=== PATIENT | male | born 1955 | race Caucasian/White ===

== ENCOUNTER → 2023-09-14 | Outpatient (CLI) | payer MEDICARE, OTHER ==
[2023-09-14 13:03] LABS: African American GFR (CKD) >90 (>60 ml/min/1.73 sqM); Blood Urea Nitrogen 19 mg/dL (9-20); Non-African American GFR(CKD) 87 (>60 ml/min/1.73 sqM)
--- NOTE | 2023-09-14 13:51 | CT ---
Exam: CT Chest with contrast. Date: 09/14/2023. Comparison: None available. History: Cough and difficulty breathing. Technique: CT examination of the chest was performed following the intravenous administration of . C oronal and sagittal reformats were performed. CT dose lowering techniques were used, to include: auto mated exposure control, adjustment for patient size, and/or use of iterative reconstruction. FINDINGS: Mediastinum and Lucina: There is no axillary, mediastinal or hilar lymphadenopathy. Pleural and Pericardial spaces: There are no pleural or pericardial effusions. Upper Abdomen: The visualized upper abdomen is unremarkable. Cardiovascular: There is dilation acing thoracic aorta 4.2 cm. No evidence of aortic dissection is se en. There are moderate to severe coronary artery calcifications. There is moderate global cardiomegal y. Pulmonary Artery: There are no central pulmonary arterial abnormalities. The examination was not per formed to evaluate for pulmonary embolism. Lung Parenchyma and Airways: Chronic compression deformity of the L2 vertebral body is partially incl uded. There are no acute osseous abnormalities. Bones: No fracture or aggressive osseous lesion. IMPRESSION: 1. No acute abnormality in the chest. 2. Cardiomegaly with moderate to severe coronary artery calcifications.
== END | disposition home or self-care (01) ==
LOC: RADCTMAIN 11:52
PROVIDERS: ATTEND Family Medicine
DX: I51.7 Cardiomegaly (principal); I25.10 Atherosclerotic heart disease of native coronary artery without angina pectoris; R06.02 Shortness of breath; R05.3 Chronic cough
CPT/HCPCS: 82565; 84520; 71260; 36415; Q9967

== ENCOUNTER → 2023-10-22 | Outpatient (CLI) | payer MEDICARE, OTHER ==
--- NOTE | 2023-10-22 12:36 | CA ---
Transthoracic Echo Report Name: Jorge Masterson Age: 67 Gender: M : 1955 Exam Date: 10/22/2023 09:17 Exam Location: [facility] Ht (in): 72 Wt (lb): 190 Ordering Physician: Linus Bishop MD Attending/Referring Phys: Edna SANCHEZ Red Cap Gloria Sharp [facility] Procedure CPT: Indications: I51.7 Cardiomegaly Cardiac Hx: Technical Quality: Technically difficult study Contrast 1: Total Dose (mL): Contrast 2: Total Dose (mL): MEASUREMENTS (Male / Female) Normal Values 2D ECHO LV Diastolic Diameter PLAX 5.5 cm 4.2 - 5.9 / 3.9 - 5.3 cm LV Systolic Diameter PLAX 4.6 cm IVS Diastolic Thickness 1.4 cm 0.6 - 1.0 / 0.6 - 0.9 cm LVPW Diastolic Thickness 1.2 cm 0.6 - 1.0 / 0.6 - 0.9 cm LV Relative Wall Thickness 0.5 LVOT Diameter 2.0 cm Aortic Root Diameter 3.8 cm LV Diastolic Volume MOD BP 84.0 cm??? 67 - 155 / 56 - 104 cm??? LV Systolic Volume MOD BP 61.1 cm??? 22 - 58 / 19 - 49 cm??? LV Ejection Fraction MOD BP 27.3 % >= 55 % LV Cardiac Index MOD BP 1450.3 cm???/min???m??? LV Diastolic Volume MOD 4C 93.9 cm??? LV Systolic Volume MOD 4C 71.4 cm??? LV Ejection Fraction MOD 4C 24.0 % LV Cardiac Index MOD 4C 1426.3 cm???/min???m??? LV Diastolic Length 4C 7.9 cm LV Systolic Length 4C 7.4 cm LV Diastolic Volume MOD 2C 64.2 cm??? LV Systolic Volume MOD 2C 46.4 cm??? LV Ejection Fraction MOD 2C 27.8 % LV Cardiac Index MOD 2C 1128.0 cm???/min???m??? LV Diastolic Length 2C 6.7 cm LV Systolic Length 2C 6.3 cm LA Volume 82.0 cm??? 18 - 58 / 22 - 52 cm??? LA Volume Index 39.0 cm???/m??? 16 - 28 cm???/m??? Ascending Aorta Diameter 4.2 cm M-MODE Aortic Root Diameter MM 3.1 cm LA Systolic Diameter MM 4.6 cm LA Ao Ratio MM 1.5 AV Cusp Separation MM 2.2 cm DOPPLER AV Peak Velocity 98.2 cm/s AV Peak Gradient 3.9 mmHg AV Mean Velocity 75.2 cm/s AV Mean Gradient 2.4 mmHg AV Velocity Time Integral 18.0 cm LVOT Peak Velocity 100.4 cm/s LVOT Peak Gradient 4.0 mmHg LVOT Velocity Time Integral 17.0 cm LVOT Stroke Volume 55.0 cm??? LVOT Stroke Volume Index 26.4 ml/m??? LVOT Cardiac Index 3480.2 cm???/min???m??? AV Area Cont Eq vti 3.0 cm??? AV Area Cont Eq pk 3.3 cm??? Mitral E Point Velocity 86.2 cm/s MV Deceleration Time 155.3 ms LV E' Septal Velocity 4.4 cm/s Mitral E to LV E' Septal Ratio 19.5 TR Peak Velocity 231.8 cm/s TR Peak Gradient 21.5 mmHg Right Atrial Pressure 15.0 mmHg Pulmonary Artery Systolic Pressu 36.5 mmHg Right Ventricular Systolic Press 36.5 mmHg FINDINGS Left Ventricle Moderately increased septal wall thickness. Mildly increased posterior wall thickness. Mildly increased left ventricular systolic volume. Severely decreased left ventricular ejection fraction. Left ventricular ejection fraction is estimated at 25-30%. Severely reduced global left ventricular systolic function. Right Ventricle Right ventricle at upper limits of normal. Mild pulmonary hypertension. Right Atrium Upper normal right atrial size. Left Atrium Moderately increased left atrial volume. Mildly increased left atrial area. Mitral Valve Mitral valve thickened. Mild mitral annular calcification. Mild mitral regurgitation. Aortic Valve Trileaflet aortic valve. No aortic valve stenosis or regurgitation. Tricuspid Valve Structurally normal tricuspid valve. Mild tricuspid regurgitation. Pulmonic Valve Pulmonic valve not well visualized. Pericardium No pericardial effusion. Aorta Mild aortic dilatation at the level of the sinuses of valsalva (root). Mildly dilated proximal ascending aorta (tube). CONCLUSIONS Technically difficult study. Left ventricular ejection fraction is estimated at 25-30%. Severely reduced global left ventricular systolic function. Mild mitral regurgitation. Mildly dilated proximal ascending aorta. 4.2 cm by CTA Previewed by: Dr Wei Sykes (Electronically Signed) Final Date: 22 October 2023 12:36
== END | disposition home or self-care (01) ==
LOC: RADNMMAIN 08:59
PROVIDERS: ATTEND Family Medicine
DX: I77.811 Abdominal aortic ectasia (principal); I34.0 Nonrheumatic mitral (valve) insufficiency; I51.7 Cardiomegaly; I48.91 Unspecified atrial fibrillation
CPT/HCPCS: 93306

== ENCOUNTER → 2023-11-15 | Day surgery (SDC) | payer MEDICARE, OTHER ==
[~2023-11-15] MED LIST: ALPRAZolam 0.25 MG TAB PO PRN; ALPRAZolam 0.5 MG TAB PO PRN; ASPIRIN 325 MG TAB PO STA; HEPARIN SODIUM 1,000 UN/ML (10ML VL) ONE; LIDOCAINE 1% INJ 10MG/ML (20 ML MDV) ONE; NITROGLYCERIN SL TABS 0.4 MG TAB SUBLINGUAL PRN; RX INFO: IV CONTRAST WAS GIVEN 1 EACH MISC MISCELLANE PRN; SODIUM CHLORIDE 0.9% 1,000 ML IV SCH; VERAPAMIL 2.5 MG/ML 2 ML AMP ONE; fentaNYL (PF) 50 MCG/ML 2 ML AMP ONE
[2023-11-15] MEDS: SODIUM CHLORIDE 0.9% 1,000 ML in EMPTY BAG 1 BAG IV SCH (06:20)
[2023-11-15 06:31] LABS: Basophils # (A) 0.1 k/uL (0-0.2); Basophils % (A) 1 %; Eosinophils # (A) 0.2 k/uL (0-0.7); Eosinophils % (A) 2 %; HCT 43.7 % (39.0-53.0); HGB 14.5 gm/dL (13.0-17.5); Lymphocytes # (A) 1.7 k/uL (1.0-4.8); Lymphocytes % (A) 20 %; MCH 29.6 pg (25.0-35.0); MCHC 33.1 g/dL (31.0-37.0); MCV 89.5 fL (80.0-100.0); Mean Platelet Volume 9.6; Monocytes # (A) 0.4 k/uL (0-1.0); Monocytes % (A) 5 %; Neutrophils # (A) 5.7 k/uL (1.3-7.7); Neutrophils % (A) 70 %; Platelet Count 225 k/uL (150-450); RBC 4.89 m/uL (4.30-5.90); RDW 13.4 % (11.5-15.5); WBC 8.2 k/uL (3.8-10.6)
[2023-11-15 06:41] LABS: African American GFR (CKD) 83 (>60 ml/min/1.73 sqM); Anion Gap 5 mmol/L; Blood Urea Nitrogen 23 mg/dL (9-20); Carbon Dioxide 28 mmol/L (22-30); Chloride 106 mmol/L (98-107); Glucose 94 mg/dL (74-99); Non-African American GFR(CKD) 72 (>60 ml/min/1.73 sqM); Potassium 4.2 mmol/L (3.5-5.1); Sodium 139 mmol/L (137-145)
[2023-11-15 07:21] VITALS: TEMP 98.1
[2023-11-15] MEDS: LIDOCAINE 1% INJ 10MG/ML (20 ML MDV) SQ ONE (07:58)
[2023-11-15] MEDS: fentaNYL (PF) 50 MCG/ML 2 ML AMP IVP ONE (07:59)
[2023-11-15] MEDS: MIDAZOLAM 2 MG/2 ML VIAL IVP ONE (07:59)
[2023-11-15] MEDS: VERAPAMIL 2.5 MG/ML 2 ML AMP INTRAARTER ONE (08:02)
[2023-11-15] MEDS: HEPARIN SODIUM 1,000 UN/ML (10ML VL) IV ONE (08:04)
[2023-11-15] MEDS: IOPAMIDOL-370 100ML BTL INJ ONE (08:15)
[2023-11-15 09:33] VITALS: RESP 16
--- NOTE | 2023-11-15 12:34 | P.CARDCATH ---
Date of Procedure: 11/15/23 Description of Procedure: DIAGNOSTIC CORONARY ANGIOGRAPHY and LEFT HEART CATH REPORT PROCEDURES PERFORMED: Left heart catheterization Selective coronary angiography Moderate conscious sedation 18 mins Right radial access INDICATION: 67-year-old was sent to the hospital for an outpatient resting echocardiogram and a stress echocardiogram. Resting echocardiogram showed an EF of 25 to 30%. Patient also reported symptoms of diaphoresis and chest pressure along with shortness of breath with minimal activity. For this the stress test was canceled and patient was seen in outpatient follow-up. On outpatient follow-up after going over the risks and benefit of cardiac catheterization we decided to proceed with heart catheterization procedure to rule out coronary artery disease as the cause of patient's cardiomyopathy and symptoms. CONSENT: I have explained the procedural steps of above-mentioned procedures in layman's terms to the patient. I discussed the risks (including but not limited to stroke, emergent vascular or cardiac surgery or ), benefits and alternative therapies for the above-mentioned procedure. I discussed the risks of sedation/analgesia and blood product administration (if indicated). The patient has indicated understanding and acceptance of these risks. Conscious Sedation: Patient's ECG, heart rate, blood pressure, pulse oximetry were monitored throughout the duration of procedure under my direct supervision. 1 mg Versed and 50 mg Fentanyl were used for induction of moderate conscious sedation. Total duration of moderate concious sedation 18 minutes. PROCEDURE: After explaining the risks, benefits and alternatives of the above mentioned procedures in detail to the patient, informed consent was obtained. Patient was taken to the catheterization lab, prepped and draped in usual sterile fashion using universal precuations. Barbow and kinsey test were pe rformed to confirm adequate perfusion to fingers. Ultrasound was used to identify the radial artery. 1% lidocaine was infiltrated over the right radial artery. A 6-Greek sheath was placed and secured in the right radial artery using modified Seldinger technique. The sheath was flushed and 5 mg verapamil was administered intra-arterially. J tipped wire was advanced under fluoroscopic guidance. Once the wire tip reached aortic root [5000] units of IV heparin was given. Over the wire JR4 diagnostic catheter was advanced. The wire in place the catheter was manipulated to cross the aortic valve and entered into LV under fluoroscopy guidance. The wire was removed and the catheter was flushed. LV pressures were obtained and pullback was performed under fluoroscopy. Catheter was manipulated to selectively engage the right coronary ostium. Right coronary angiography was performed in different angiographic projections. The JR4 diagnostic catheter was exchanged for a JL 4 diagnostic catheter over the J-wire. The wire was removed, catheter was flushed and manipulated under fluoroscopy to selectively engaged the left coronary ostium. Left coronary angioplasty was performed in different angiographic projections. Catheter was removed over the wire. Radial sheath was flushed. The right radial sheath was removed and a TR band was placed with excellent patent hemostasis was achieved. The patient tolerated the procedure well. Patient was transported back to the post catheterization holding area in stable condition. Angiographic images were reviewed in detail. HEMODYNAMICS: Aortic Pressure: 114/82 mmHg. LV pressure: 115/5 mmHg. LVEDP 12 mmHg. There was no significant gradient across the aortic valve. SELECTIVE CORONARY ARTERIOGRAPHY: LEFT MAIN: The left main is a very short which trifurcates into the LAD, ramus and circumflex. Left main appears angiographically normal. LEFT ANTERIOR DESCENDING CORONARY ARTERY: LAD is a large caliber vessel which wraps around to the apex. Proximal LAD has mild luminal irregularities. Mid LAD has diffuse 40 to 50% calcific narrowing. LAD has mild luminal irregularities. Gives small diagonal branches. RAMUS: Large caliber. Has mild luminal regularities in 10-20% range. LEFT CIRCUMFLEX CORONARY ARTERY: It is non dominant vessel. Large-caliber vessel has mild luminal irregularities in 10 to 20% range. gives medium size OM1 and medium size OM2. OM1 and OM 2 has mild luminal irregularities RIGHT CORONARY ARTERY: Co-dominant vessel. The right coronary artery is a large caliber vessel which gives medium sized PLV and PDA branch. RCA has mild luminal irregularities in 10 to 20% range. IMPRESSION: Moderate nonobstructive disease in mid LAD 10-20% luminal irregularities in other coronary arteries. Slow coronary flow throughout likely due to A-fib Normal left sided filling pressures Nonischemic cardiomyopathy Atrial fibrillation PLAN: Start amiodarone load and taper strategy. Start Farxiga 10 mg daily Continue aspirin. Increase Xarelto to 20 mg daily Continue aspirin, Lipitor, metoprolol succinate 25 mg daily, losartan 25 mg daily Aggressive risk factor modification per most recent ACC/AHA guidelines. 100 cc fluids for 3 hours Discharge home in 3 hours Follow-up in the office in 1-2 weeks. Performing Physician Wei Sykes MD, FACC, RPVI Thank you for allowing [facility] to participate in this patient's care. Feel free to reach out in case of any followup questions.
[2023-11-15 12:44] VITALS: BP 125/81; PULSE 92
== END ==
LOC: CATHCVL 05:46
PROVIDERS: ATTEND Student in an Organized Health Care Education/Training Program
DX: I42.8 Other cardiomyopathies (principal); I48.91 Unspecified atrial fibrillation; I50.22 Chronic systolic (congestive) heart failure; Z79.82 Long term (current) use of aspirin; Z79.899 Other long term (current) drug therapy
CPT/HCPCS: 93458; 76937; 80048; 85025; 99152; C1769 ×2; C1894; J2250; J2001; J3010; J1644; Q9967

== ENCOUNTER → 2023-11-29 | Outpatient (CLI) | payer MEDICARE, OTHER ==
[2023-11-29 11:40] LABS: HGB 13.4 g/dL (13.0-17.0); MCH 28.3 pg (27.0-32.0); MCHC 31.2 g/dL (32.0-37.0); MCV 90.9 FL (80.0-97.0); Mean Platelet Volume 12.6 FL (9.5-12.2); NRBC Per 100 WBC 0 X 10*3/uL (0.00-0.01); Platelet Count 186 X 10*3/uL (140-440); RBC 4.73 X 10*6/uL (4.40-5.60); RDW 13.9 % (11.5-14.5); WBC 6.49 X 10*3/uL (4.50-10.00)
[2023-11-29 15:59] LABS: ALT 20 U/L (10-49); AST 22 U/L (14-35); Albumin 3.9 g/dL (3.8-4.9); Albumin/Globulin Ratio 1.34 Ratio (1.60-3.17); Alkaline Phosphatase 68 U/L (41-126); Blood Urea Nitrogen 21.6 mg/dL (9.0-27.0); Calcium 9.1 mg/dL (8.7-10.3); Carbon Dioxide 28.7 mmol/L (21.6-31.8); Chloride 103 mmol/L (96-109); Chol/HDL Ratio 2.07 Ratio; Globulin 2.9 g/dL (1.6-3.3); Glucose 93 mg/dL (70-110); LDL Cholesterol,Calculated 44.7 mg/dL (0.0-131.0); Potassium 4.4 mmol/L (3.5-5.5); Sodium 140 mmol/L (135-145); Total Bilirubin 0.5 mg/dL (0.3-1.2); Total Protein 6.8 g/dL (6.2-8.2); VLDL Calculation 7.58 mg/dL (5.00-40.00)
== END | disposition home or self-care (01) ==
LOC: LABWHC1 08:13
PROVIDERS: ATTEND Student in an Organized Health Care Education/Training Program
DX: I42.9 Cardiomyopathy, unspecified (principal); I48.19 Other persistent atrial fibrillation; E78.2 Mixed hyperlipidemia; R06.09 Other forms of dyspnea
CPT/HCPCS: 36415; 80053; 80061; 83036; 85027

== ENCOUNTER 2023-11-30 11:02 | Day surgery (SDC) | payer MEDICARE, OTHER ==
[~2023-11-30 11:02] MED LIST changes: -ALPRAZolam 0.25 MG TAB PO PRN; -ALPRAZolam 0.5 MG TAB PO PRN; -ASPIRIN 325 MG TAB PO STA; -HEPARIN SODIUM 1,000 UN/ML (10ML VL) ONE; +LIDOCAINE 1% (10MG/ML) FOR IV START INTRADERMA PRN; -LIDOCAINE 1% INJ 10MG/ML (20 ML MDV) ONE; -NITROGLYCERIN SL TABS 0.4 MG TAB SUBLINGUAL PRN; -RX INFO: IV CONTRAST WAS GIVEN 1 EACH MISC MISCELLANE PRN; -SODIUM CHLORIDE 0.9% 1,000 ML IV SCH; -VERAPAMIL 2.5 MG/ML 2 ML AMP ONE; -fentaNYL (PF) 50 MCG/ML 2 ML AMP ONE
[2023-11-30] MEDS: LACTATED RINGERS 1,000 ML IV SCH (12:24)
[2023-11-30 12:55] VITALS: TEMP 98.4
[2023-11-30] MEDS ORDERED: PROPOFOL 10 MG/ML 20 ML VIAL IV ONE (13:19)
[2023-11-30] MEDS: BENZOCAINE SPRAY 1 CAN TOPICAL ONE (13:20)
[2023-11-30] MEDS ORDERED: FUROSEMIDE 10 MG/ML 4 ML VIAL IV STA (14:14)
[2023-11-30 14:35] VITALS: RESP 16
[2023-11-30 15:40] VITALS: BP 133/81; PULSE 67
--- NOTE | 2023-11-30 16:57 | P.TEE ---
Indications for Procedure(s): Persistent symptomatic atrial fibrillation, cardiomyopathy Date of Procedure: 11/30/23 Description of Procedure(s): Procedure performed: 1. Transesophageal Echocardiogram. 2. Synchronized Cardioversion. 3. Bubble study Indications: Persistent atrial fibrillation. Nonischemic cardiomyopathy Consent: I have discussed the risks, benefits and alternative therapies for the above-mentioned procedure. The patient has indicated understanding and acceptance of the risks of the procedure. Signed consent was obtained and was placed in the paper chart. Moderate conscious sedation: Moderate conscious sedation was administered by anesthesia, see separate report. Procedural Steps: Timeout was performed in usual fashion. Patient's heart rate, blood pressure, oxygen saturation and ECG were monitored. After achieving appropriate moderate conscious sedation, MELO MELO probe was advanced without difficulty and without any immediate complications to the esophagus. MELO study was performed with color flow doppler, pulsed wave doppler and continuous wave doppler. Agitated saline bubbles were injected to assess for any intra-atrial shunt. The probe was then removed. SYNCHRONIZED CARDIOVERSION After making sure that there is no evidence of intracardiac thrombus, pacer pads were placed and secured on patients chest and back. Synchronized cardioversion was perfromed using [150] J. [1] attempt. Sinus rhythm was confirmed with a 12 lead EKG. Patient tolerated the procedure well. Patient was transferred to the post procedure area in stable and satisfactory condition. Complications: none Blood loss: none FINDINGS Left Atrium: Severe left atrial dilatation. No evidence of mass or thrombus seen. Spontaneous echogenic contrast noticed in left atrium suggestive of slow flow. Evidence of elevated LA filling pressures with reversal of S/D pulmonic vein and bulging of interatrial septum. Left Atrial Appendage: No evidence of thrombus or mass seen in JUDIT. Spontaneous echogenic contrast noticed. Slow velocities on Doppler Inter atrial septum: Small PFO with noticed on color Doppler with [id number] shunting. No evidence of right to left shunting noticed on bubble study. Left Ventricle: Severely reduced global LV systolic function Right Atrium: Normal overall RA size Right Ventricle: Normal global RV size and systolic function Aortic Valve: Structurally normal Trileaflet, . No significant stenosis or regurgitation on color doppler assessment. Mitral Valve: Struturally normal. Mild central mitral regurgitation, likely functional Pulmonic Valve: No significant stenosis or regurgitation color Doppler Tricuspid Valve: Mild tricuspid regurgitation. Ascending aorta, Aortic root and Aortic arch: Mild intimal thickening. Ascending aorta measured at 4.1 cm. Mildly increased ascending aorta size, indexed ascending aorta 19 mm/m Descending aorta: Mild intimal thickening. CONCLUSION: No evidence of LA or JUDIT thrombus. Low velocities in JUDIT. Spontaneous echogenic contrast. Severe left atrial dilatation, with mild elevated LA filling pressures Small PFO with [id number] shunting Mild functional MR Mildly dilated ascending aorta measuring at 4.1 cm Synchronized cardioversion to follow. Successful 1 attempt 150 J Plan Continue same medications. Xarelto 20 mg uninterrupted. Discontinue losartan. Start Entresto 24/26 mg twice daily. Give 1 dose of IV Lasix 40 mg for elevated LA pressures and left atrial dilatation. Wei Sykes MD, RPVI, FACC Thank you for allowing [facility] to participate in this patient's care. Feel free to reach out in case of any followup questions.
== END 2023-11-30 15:35 | disposition home or self-care (01) ==
LOC: OR 11:02
PROVIDERS: ATTEND Student in an Organized Health Care Education/Training Program
DX: I36.1 Nonrheumatic tricuspid (valve) insufficiency (principal); I48.11 Longstanding persistent atrial fibrillation; E03.9 Hypothyroidism, unspecified; I42.8 Other cardiomyopathies; I45.10 Unspecified right bundle-branch block; Z79.82 Long term (current) use of aspirin; Z79.899 Other long term (current) drug therapy; Z79.01 Long term (current) use of anticoagulants; Z79.890 Hormone replacement therapy
CPT/HCPCS: 93312; 93320; 93325; 92960; J2704

== ENCOUNTER 2024-05-30 19:45 | Emergency (ER) | payer MEDICARE, OTHER ==
[2024-05-30 20:00] VITALS: TEMP 98.5
--- NOTE | 2024-05-30 22:19 | XR ---
EXAMINATION TYPE: XR lumbar spine 2 or 3V DATE OF EXAM: 05/30/2024 8:54 PM CLINICAL INDICATION:Male, 68 years old with history of Pain after fall; [facility] COMPARISON: CT chest 09/14/2023 TECHNIQUE: XR lumbar spine 2 or 3V - Frontal, lateral and coned down L5-S1 lateral views of the lumba r spine. FINDINGS: Bones are generally demineralized limiting evaluation. There is moderate anterior wedge compression f racture deformity with height loss along the superior endplate L2, appears chronic with a similar hollis earance on the prior CT. There is moderate multilevel degenerative disk disease and facet arthrosis w ithout significant listhesis. Moderate apex right scoliosis. Mild/moderate degenerative change of the SI joints is also seen. Moderate stool throughout the visualized colon. Mildly prominent gas-filled loops of small bowel. Non specific bowel gas pattern. If clinical concern persists, CT or MRI may be obtained for further evaluation. IMPRESSION: 1. Chronic-appearing L2 compression fracture, similar in appearance to the prior CT exam. 2. Moderate lumbar spondylosis.
--- NOTE | 2024-05-30 22:24 | ED ---
Fall HPI - General Chief Complaint: Fall Stated Complaint: Back Pain Time Seen by Provider: 05/30/24 20:32 Source: patient, EMS, RN notes reviewed Mode of arrival: EMS Limitations: no limitations - History of Present Illness Initial Comments: This is a 68-year-old male who presents to the emergency department for a fall. Patient fell a couple of weeks ago because his left knee gave out on him, which does happen fairly frequently. He injured his lower back when he fell, and states that it continues to be painful. Denies sustaining any other injuries. Not currently taking anything for pain control. Denies any loss of bowel/bladder control or saddle anesthesia. MD Complaint: fall - Related Data Home Medications Medication Instructions Recorded Confirmed Levothyroxine Sodium [Synthroid] 25 mcg PO DAILY 11/13/23 11/30/23 Previous Rx's Medication Instructions Recorded Aspirin EC [Ecotrin Low Dose] 81 mg PO DAILY 90 Days #90 tab 10/22/23 Amiodarone [Cordarone] 200 mg PO DAILY 30 Days #120 tab 11/15/23 Dapagliflozin Propanediol [Farxiga] 10 mg PO DAILY #30 tablet 11/15/23 Atorvastatin Calcium [Lipitor] 40 mg PO DAILY 30 Days #30 tab 11/30/23 Metoprolol Succinate (ER) [Toprol 50 mg PO DAILY 30 Days #30 11/30/23 XL] Rivaroxaban [Xarelto] 20 mg PO DAILY #30 tab 11/30/23 Sacubitril/Valsartan [Entresto 24 1 each PO BID 30 Days #60 tablet 11/30/23 mg-26 mg Tablet] Cyclobenzaprine [Flexeril] 5 mg PO TID PRN #30 tablet 05/31/24 Lidocaine 5% Patch [Lidoderm 5% 1 patch TOPICAL DAILY PRN #30 patch 05/31/24 Patch] Meloxicam [Mobic] 15 mg PO DAILY PRN #30 tab 05/31/24 Allergies Allergy/AdvReac Type Severity Reaction Status Date / Time No Known Allergies Allergy Verified 05/30/24 20:00 Review of Systems ROS Statement: Those systems with pertinent positive or pertinent negative responses have been documented in the HPI. ROS Other: All systems not noted in ROS Statement are negative. Past Medical History Past Medical History: Atrial Fibrillation, Hyperlipidemia, Hypertension, Thyroid Disorder Additional Past Medical History / Comment(s): per dr Bishop has "fluttering" in his heart and sent him to [facility],. Pt is learning impaired goes to [facility] program but at this time signs his own consents, History of Any Multi-Drug Resistant Organisms: None Reported Past Surgical History: No Surgical Hx Reported Past Anesthesia/Blood Transfusion Reactions: No Reported Reaction Past Psychological History: No Psychological Hx Reported Smoking Status: Never smoker Past Alcohol Use History: None Reported Past Drug Use History: None Reported - Past Family History Brother(s) Family Medical History: Cancer Additional Family Medical History / Comment(s): testicular General Exam Limitations: no limitations General appearance: alert, in no apparent distress Head exam: Present: atraumatic, normocephalic, normal inspection Respiratory exam: Present: normal lung sounds bilaterally. Absent: respiratory distress, wheezes, rales, rhonchi, stridor Cardiovascular Exam: Present: regular rate, normal rhythm, normal heart sounds. Absent: systolic murmur, diastolic murmur, rubs, gallop, clicks Back exam: Present: other (Tenderness to palpation over the lower lumbar spine) Neurological exam: Present: alert, oriented X3, CN II-XII intact Psychiatric exam: Present: normal affect, normal mood Skin exam: Present: warm, dry, intact, normal color. Absent: rash Course Vital Signs 05/30/24 05/31/24 19:57 02:43 Temperature 98.5 F Pulse Rate 59 L 75 Respiratory 20 18 Rate Blood Pressure 131/75 99/64 O2 Sat by Pulse 98 97 Oximetry Medical Decision Making - Medical Decision Making This is a 68-year-old male who presents the emergency department for low back pain after a fall. Was pt. sent in by a medical professional or institution? @ -No Did you speak to anyone other than the patient for history? @ -No Did you review nursing and triage notes? @ -Yes, and I agree, it is accurate with regards to the patient's symptoms. Were old charts reviewed? @ -No Differential Diagnosis? @ -Differential Back Pain: Strain, zoster, cauda equina syndrome, epidural abscess, vertebral osteomyelitis, discitis, fracture, subluxation, disc herniation, DJD, spinal stenosis, dissection, AAA, pancreatitis, peptic ulcer disease, pyelonephritis, kidney stone, this is not meant to be an all-inclusive list. EKG interpreted by me (3pts min.)? @ -Not obtained X-rays interpreted by me (1pt min.)? @ -X-ray of the lumbar spine obtained. My interpretation identifies no acute fractures. CT interpreted by me (1pt min.)? @ -CT scan of the lumbar spine obtained. My interpretation identifies no acute fractures. U/S interpreted by me (1pt. min.)? @ -Not obtained What testing was considered but not performed? (CT, X-rays, U/S, labs)? Why? @ -None What meds were considered but not given? Why? @ -None Did you discuss the management of the patient with other professionals? @ -No Did you reconcile home meds? @ -No Was smoking cessation discussed for >3mins.? @ -No Was critical care preformed (if so, how long)? @ -No Were there social determinants of health that impacted care today? How? (Homelessness, low income, unemployed, alcoholism, drug addiction, transportation, low edu. Level, literacy, decrease access to med. care, shelter, rehab)? @ -No Was there de-escalation of care discussed even if they declined? (Discuss DNR or withdrawal of care, Hospice)? @ -No What co-morbidities impacted this encounter? (DM, HTN, Smoking, COPD, CAD, Cancer, CVA, Hep., AIDS, mental health diagnosis, sleep apnea, morbid obesity)? @ -None Was patient admitted / discharged? @ -Discharged. X-ray of the lumbar spine obtained revealing a chronic L2 compression fracture without acute process. However, patient was concerned about the severity of his pain and we proceeded with a CT scan of the lumbar spine. This revealed no acute process. Pain was well-controlled in the emergency department. Prescription for Mobic, Flexeril, and lidocaine patches provided with dosing instructions reviewed. Otherwise advised follow-up with his PCP. Patient discharged home in stable condition. Case discussed with ED attending Dr. Coronado. Return precautions reviewed in depth, the patient is instructed to return to the emergency department with any new, worsening, or concerning symptoms. Patient verbalized understanding. Undiagnosed new problem with uncertain prognosis? @ -None Drug Therapy requiring intensive monitoring for toxicity (Heparin, Nitro, Insulin, Cardizem)? @ -None Were any procedures done? @ -None Diagnosis/symptom? @ -Fall, low back contusion Acute, or Chronic, or Acute on Chronic? @ -Acute Uncomplicated (without systemic symptoms) or Complicated (systemic symptoms)? @ -Uncomplicated Side effects of treatment? @ -None Exacerbation, Progression, or Severe Exacerbation] @ -Not applicable Poses a threat to life or bodily function? @ -No - Radiology Data Radiology results: report reviewed, image reviewed Disposition Clinical Impression: Fall, Contusion of lower back Disposition: HOME SELF-CARE Condition: Stable Instructions (If sedation given, give patient instructions): Fall Prevention for Older Adults (ED), Acute Low Back Pain (ED) Additional Instructions: Return to the emergency department with any new, worsening, or concerning symptoms. Take the Mobic once daily for pain relief. Do not take any other anti-inflammatories such as ibuprofen if you take this, take one or the other. You may take this with Tylenol. Take the Flexeril as 1 to 2 tablets up to 3 times daily. Be aware that this may make you drowsy. You can also apply the lidocaine patches daily. Follow up with your primary care provider in 1-2 days. Prescriptions: Cyclobenzaprine [Flexeril] 5 mg PO TID PRN #30 tablet PRN Reason: Pain Lidocaine 5% Patch [Lidoderm 5% Patch] 1 patch TOPICAL DAILY PRN #30 patch PRN Reason: Pain Meloxicam [Mobic] 15 mg PO DAILY PRN #30 tab PRN Reason: Pain Is patient prescribed a controlled substance at d/c from ED?: No Referrals: Linus Bishop MD [Primary Care Provider] - 1-2 days Time of Disposition: 02:22
[2024-05-31] MEDS: KETOROLAC 15 MG/ML 1 ML VIAL IM STA (00:23)
[2024-05-31] MEDS: DEXAMETHASONE SOD PHOSPHATE 10 MG/ML 1 ML VIAL IM STA (00:24)
[2024-05-31] MEDS: MORPHINE SULFATE 4 MG/ML SYRINGE IM STA (00:24)
[2024-05-31] MEDS: LIDOCAINE 4% PATCH TOPICAL ONE (00:24)
[2024-05-31] MEDS: CYCLOBENZAPRINE 5 MG TAB PO STA (00:25)
--- NOTE | 2024-05-31 02:04 | CT ---
EXAM: CT Lumbar Spine Without Intravenous Contrast CLINICAL HISTORY: ITS.REASON CT Reason: Fall, worsening pain TECHNIQUE: Axial computed tomography images of the lumbar spine without intravenous contrast. CTDI is 49.8 mGy and DLP is 1486 mGy-cm. This CT exam was performed using one or more of the following dose reduction techniques: automated exposure control, adjustment of the mA and/or kV according to patient size, and/or use of iterative reconstruction technique. COMPARISON: No relevant prior studies available. FINDINGS: Multiple chronic compression deformities of the lumbar spine, preferentially involving L2. The lumbar lordosis is preserved. There is no spondylolisthesis. The posterior elements are maintained, without evidence of acute fracture. The pedicles are intact. Multilevel lumbar spondylosis and degenerative disc disease. IMPRESSION: No acute fracture or subluxation of the lumbar spine.
[2024-05-31] MEDS: traMADol 50 MG STARTER PACK 3 TAB BTL PO STA (02:41)
[2024-05-31 02:47] VITALS: BP 99/64; PULSE 75; RESP 18
== END 2024-05-31 02:49 | disposition home or self-care (01) ==
LOC: EC 19:45
CPT/HCPCS: 72100; 72131; 96372; 99283

== ENCOUNTER → 2024-07-15 | Day surgery (SDC) | payer MEDICARE, OTHER ==
[~2024-07-15] MED LIST changes: +DEXAMETHASONE SOD PHOSPHATE 4 MG/ML 1 ML VIAL IV ONE; +HYDROmorphone 0.5 MG/0.5 ML SYRINGE IVP PRN; +LACTATED RINGERS 1,000 ML IV SCH; +MIDAZOLAM 2 MG/2 ML VIAL IV PRN; +ONDANSETRON 4 MG/2 ML VIAL IVP ONE; +SODIUM CHLORIDE 0.9% 1,000 ML IV SCH; +fentaNYL (PF) 50 MCG/ML 2 ML AMP IV PRN; +fentaNYL (PF) 50 MCG/ML 2 ML AMP IVP PRN
== END ==
LOC: CATHEP 14:44
PROVIDERS: ATTEND Internal Medicine Clinical Cardiac Electrophysiology
DX: Z53.8 Procedure and treatment not carried out for other reasons (principal); I48.19 Other persistent atrial fibrillation; I25.5 Ischemic cardiomyopathy; I51.7 Cardiomegaly; Z79.01 Long term (current) use of anticoagulants; Z79.82 Long term (current) use of aspirin; Z79.899 Other long term (current) drug therapy

== ENCOUNTER 2024-08-19 08:13 | Day surgery (SDC) | payer MEDICARE, OTHER ==
[2024-08-18 11:12] VITALS: BMI 22.4
[2024-08-19 09:30] LABS: Basophils % (A) 0 %; Eosinophils # (A) 0.2 k/uL (0-0.7); Eosinophils % (A) 2 %; HCT 45.5 % (39.0-53.0); HGB 14.4 gm/dL (13.0-17.5); Lymphocytes # (A) 0.8 k/uL (1.0-4.8); Lymphocytes % (A) 10 %; MCH 29.2 pg (25.0-35.0); MCHC 31.6 g/dL (31.0-37.0); MCV 92.5 fL (80.0-100.0); Mean Platelet Volume 9.3; Monocytes # (A) 0.5 k/uL (0-1.0); Monocytes % (A) 6 %; Neutrophils # (A) 6.5 k/uL (1.3-7.7); Neutrophils % (A) 81 %; Platelet Count 206 k/uL (150-450); RBC 4.92 m/uL (4.30-5.90); RDW 15.5 % (11.5-15.5)
[2024-08-19 09:45] LABS: Glucose,Whole Blood 81 mg/dL (70-110)
[2024-08-19 10:00] LABS: ALT 20 U/L (4-49); AST 26 U/L (17-59); African American GFR (CKD) 54 (>60 ml/min/1.73 sqM); Albumin 3.9 g/dL (3.5-5.0); Alkaline Phosphatase 74 U/L (38-126); Anion Gap 5 mmol/L; Blood Urea Nitrogen 46 mg/dL (9-20); Calcium 8.8 mg/dL (8.4-10.2); Carbon Dioxide 29 mmol/L (22-30); Chloride 105 mmol/L (98-107); Glucose 87 mg/dL (74-99); Non-African American GFR(CKD) 47 (>60 ml/min/1.73 sqM); Potassium 4.6 mmol/L (3.5-5.1); Sodium 139 mmol/L (137-145); Total Bilirubin 0.7 mg/dL (0.2-1.3); Total Protein 7.3 g/dL (6.3-8.2)
[2024-08-19] MEDS ORDERED: HEPARIN SODIUM,PORCINE 5,000 UNIT/ML 1 ML VIAL ONE (11:12)
[2024-08-19] MEDS ORDERED: ePHEDrine 50 MG/ML 1 ML VIAL ONE (11:12)
[2024-08-19] MEDS ORDERED: PHENYLEPHRINE 10 MG/ML VIAL ONE (11:12)
[2024-08-19] MEDS ORDERED: SUCCINYLCHOLINE CHLORIDE 200 MG/10 ML VIAL IV ONE (11:12)
[2024-08-19] MEDS ORDERED: fentaNYL (PF) 50 MCG/ML 2 ML AMP ONE (11:12)
[2024-08-19] MEDS ORDERED: HEPARIN SODIUM,PORCINE 10,000 UNIT/ML 1 ML VIAL ONE (11:12)
[2024-08-19] MEDS ORDERED: PROPOFOL 10 MG/ML 20 ML VIAL IV ONE (11:12)
[2024-08-19] MEDS ORDERED: MIDAZOLAM 2 MG/2 ML VIAL ONE (11:12)
[2024-08-19] MEDS: IV FLUID CONTINUATION 1,000 ML IV ONE (11:17)
[2024-08-19 11:33] LABS: T4, Free (Free Thyroxine) 0.85 ng/dL (0.78-2.19)
[2024-08-19] MEDS: HEPARIN SOD,PORK IN 0.45% NACL 25,000 UNIT in 0.45% NACL 1 250ML.BAG IV ONE (12:20)
[2024-08-19] MEDS: LIDOCAINE 1% INJ 10MG/ML (20 ML MDV) SQ ONE (12:20)
[2024-08-19] MEDS: HEPARIN SODIUM (1,000 UNIT/ML) 1,000 UNIT in SODIUM CHLORIDE 0.9% 1,000 ML IRRIGATION ONE (14:07)
[2024-08-19] MEDS: IOPAMIDOL-370 100ML BTL INJ ONE (15:02)
[2024-08-19] MEDS: LACTATED RINGERS 1,000 ML IV ONE (15:56)
[2024-08-19] MEDS ORDERED: ACETAMINOPHEN TAB 325 MG TAB PO PRN (16:17)
--- NOTE | 2024-08-19 16:46 | P.HPCAR ---
History of Present Illness This is Dr. Silva dictating an H/P on this patient The patient was interviewed and examined IMPRESSION / ASSESSMENT: Persistent atrial fibrillation, failed amiodarone Severe cardiomyopathy ejection fraction 30% initially On medical treatment ejection fraction 40-45% Mild CAD Severe left atrial enlargement PLAN: EP study and A-fib ablation Continue Xarelto but at a dose of 20 mg p.o. daily lifelong HPI Patient remains in atrial fibrillation He complains of tiredness fatigue shortness of breath on exertion Denies any chest discomfort dizziness or lightheadedness recently ROS: No fever chills or rigors, no cough, phlegm or expectoration, no nausea, vomiting or diarrhea, no hematuria, dysuria, no musculoskeletal complaints, no strokes or seizures, no skin lesions. EXAMINATION: Afebrile pulse rate in the 80s irregular in atrial fibrillation respiration 16 Blood pressure 137/95 mmHg Breath sounds are reduced bilaterally Heart sounds are irregular S3 gallop noted REVIEW OF LABS, ECG & MEDICAL DATA White count 8000, hemoglobin 14.4 Platelet count 206,000 Electrolytes normal BUN 46 and creatinine 1.53 TSH 35, on levothyroxine Currently on 50 mcg of Synthroid Physical Exam Vitals: Vital Signs Temp Pulse Pulse Resp BP BP Pulse Ox 08/19/24 16:30 96.8 F L 58 L 14 112/71 98 08/19/24 09:21 98.8 F 87 16 137/95 97 Intake and Output 08/19/24 08/19/24 08/19/24 06:59 14:59 22:59 Intake Total 1691 500 Balance 1691 500 Intake: IV 1691 500 Other: Weight 90.3 kg Past Medical History Past Medical History: Atrial Fibrillation, Hyperlipidemia, Hypertension, Thyroid Disorder Additional Past Medical History / Comment(s): per dr Bishop has "fluttering" in his heart and sent him to [facility],. Pt is learning impaired goes to [facility] program but at this time signs his own consents, History of Any Multi-Drug Resistant Organisms: None Reported Past Surgical History: Heart Catheterization Additional Past Surgical History / Comment(s): CARDIOVERSION, Past Anesthesia/Blood Transfusion Reactions: No Reported Reaction Smoking Status: Never smoker - Past Family History Brother(s) Family Medical History: Cancer Additional Family Medical History / Comment(s): testicular Physical Examination Vital Signs Temp Pulse Pulse Resp BP BP Pulse Ox 08/19/24 16:30 96.8 F L 58 L 14 112/71 98 08/19/24 09:21 98.8 F 87 16 137/95 97 Intake and Output 08/19/24 08/19/24 08/19/24 06:59 14:59 22:59 Intake Total 1691 500 Balance 1691 500 Intake: IV 1691 500 Other: Weight 90.3 kg Results 08/19/24 08:50 08/19/24 08:50 Cardiac Enzymes 08/19/24 Range/Units 08:50 AST 26 (17-59) U/L CBC 08/19/24 Range/Units 08:50 WBC 8.0 (3.8-10.6) k/uL RBC 4.92 (4.30-5.90) m/uL Hgb 14.4 (13.0-17.5) gm/dL Hct 45.5 (39.0-53.0) % Plt Count 206 (150-450) k/uL Comprehensive Metabolic Panel 08/19/24 Range/Units 08:50 Sodium 139 (137-145) mmol/L Potassium 4.6 (3.5-5.1) mmol/L Chloride 105 (98-107) mmol/L Carbon Dioxide 29 (22-30) mmol/L BUN 46 H (9-20) mg/dL Creatinine 1.53 H (0.66-1.25) mg/dL Glucose 87 (74-99) mg/dL Calcium 8.8 (8.4-10.2) mg/dL AST 26 (17-59) U/L ALT 20 (4-49) U/L Alkaline Phosphatase 74 (38-126) U/L Total Protein 7.3 (6.3-8.2) g/dL Albumin 3.9 (3.5-5.0) g/dL Current Medications Generic Name Dose Route Start Last Admin Trade Name Freq PRN Reason Stop Dose Admin Acetaminophen 650 mg 08/19/24 16:17 Acetaminophen Tab 325 Mg Tab PO 09/18/24 16:16 Q6HR PRN Mild Pain (Scale 1 to 3) Amiodarone HCl 200 mg 08/20/24 09:00 Amiodarone 200 Mg Tab PO 09/19/24 08:59 DAILY [facility] Aspirin 81 mg 08/20/24 09:00 Aspirin 81 Mg PO 09/19/24 08:59 DAILY [facility] Atorvastatin Calcium 40 mg 08/20/24 09:00 Atorvastatin 40 Mg Tab PO 09/19/24 08:59 DAILY [facility] Dapagliflozin 10 mg 08/20/24 09:00 Dapagliflozin Propanediol 10 Mg Tablet PO 09/19/24 08:59 DAILY [facility] Cefazolin Sodium 2 gm/ Sodium 50 mls @ 100 mls/hr 08/19/24 20:00 Chloride IVPB Q8H [facility] Protocol Levothyroxine Sodium 75 mcg 08/20/24 06:30 Levothyroxine 75 Mcg Tab PO DAILY@0630 [facility] Losartan Potassium 25 mg 08/20/24 09:00 Losartan 25 Mg Tab PO 09/19/24 08:59 DAILY [facility] Metoprolol Succinate 25 mg 08/20/24 09:00 Metoprolol Succinate (Er) 25 Mg Tab.Er.24h PO 09/19/24 08:59 DAILY [facility] Rivaroxaban 20 mg 08/20/24 09:00 Rivaroxaban 20 Mg Tab PO 09/19/24 08:59 DAILY [facility] Protocol Sacubitril/Valsartan 1 each 08/19/24 21:00 Sacubitril/Valsartan 24 Mg-26 Mg Tablet PO 09/18/24 20:59 BID [facility] Sodium Chloride 12 ml 08/19/24 16:17 Sodium Chloride 0.9% Flush 10 Ml Syringe IV 09/18/24 16:16 Q12HR PRN Line Flush Spironolactone 25 mg 08/20/24 09:00 Spironolactone 25 Mg Tab PO BID [facility] Intake and Output 08/19/24 08/19/24 08/19/24 06:59 14:59 22:59 Intake Total 1691 500 Balance 1691 500 Intake: IV 1691 500 Other: Weight 90.3 kg Patient Weight 08/20/24 06:59 Weight 90.3 kg 08/19/24 08:50 08/19/24 08:50
--- NOTE | 2024-08-19 16:59 | P.EPPROC ---
- EP Procedure Note Electrophysiology Procedure Note: PROCEDURE A. fib ablation with PVI, left atrial roof ablation, left atrial septal ablation and focal atrial tachycardia ablation in the left atrium/left atrial ridge DIAGNOSIS Persistent atrial fibrillation, symptomatic, refractory to therapy. Enlarged left atrium RESULT No left atrial appendage mass seen on intracardiac echo, thickened pericardium, reduced LV systolic function Successful A. fib ablation/pulmonary vein isolation of all veins using cryo- ablation at an antral level Complete entrance block in all 4 veins confirmed Left atrial roof ablation Left atrial septal ablation Ablation of a focal atrial tachycardia in the left atrial ridge, likely epicardial and originating from the vein of Melvin No evidence for phrenic nerve injury Esophageal deflection YES Electrical cardioversion with a synchronized shock across the chest of the atrial tachycardia; YES PROCEDURE DETAILS Written informed consent prior to procedure. Patient brought to the EP lab. General anesthesia given. Heparin administered. A city maintained above 300 seconds Both groins prepped and draped per protocol and venous sheaths placed. Esophagus intubated, circa catheter for temperature monitoring an endoscope for possible esophageal deflection. Phrenic nerve monitoring performed. Esophageal temperature monitoring performed. Esophageal deflection performed if circa catheter overlapping with the balloon or circa temperature less than 27.5C Intracardiac echocardiography performed. Pericardium evaluated. Left atrial appendage evaluated. Left atrium evaluated along with pulmonary veins Transseptal catheterization performed under fluoroscopic guidance and intracardiac echo guidance Cryoablation sheath exchanged, balloon catheter along with achieve catheter placed in the left atrium. Pulmonary veins isolated in the following sequence: Left superior pulmonary vein followed by left inferior pulmonary vein, followed by right inferior pulmonary vein and lastly right superior pulmonary vein. Phrenic nerve stimulation along with capture thresholds within the SVC and right superior pulmonary vein to identify the phrenic nerve proximity to the cryo- balloon. Pulmonary veins isolated and confirmed with entrance and exit block. Phrenic nerve integrity confirmed at the end of the procedure Ablation of the left atrial roof performed with sequential lesions from the left superior to the right superior pulmonary veins. Ablation of the electrograms confirmed Ablation of the left atrial septum performed with cannulation of the superior branch of the right inferior and the inferior branch of the right superior vein to achieve ablation of the posterior septum of the left atrium. Ablation of electrograms confirmed Electrical cardioversion performed for persistence of organized atrial fibrillation/atrial tachycardia despite ablation of the left atrial ridge area. Atrial tachycardia cycle length was 324 ms Diagnostic catheters for the high right atrium, His bundle, coronary sinus placed. LA and RA pressures recorded LA pressure: 10/0/5 Diagnostic EP study with coronary sinus pacing and recording Baseline measurements: In sinus rhythm DC interval 251 ms, QRS 125 ms right bundle branch block pattern. QT interval 496 ms Venous sheaths were removed and hemostasis assured with a closure device. Patient extubated and transferred to recovery Increase procedural time During ablation multiple attempts had to be made to move the esophagus a safe distance of the from the pulmonary vein draining cryoablation, to avoid excessive thermal cooling of the esophagus This took extra time and effort to keep the esophagus a safe distance away from the cryoablation balloon. Multiple short lesions were delivered in the right sided veins to minimize esophageal cooling. This took extra time Left atrial roof ablation was difficult on account of the size of the left atrium which was quite large. This was long left atrial roof and it took extra time and extra ablations for completion Additional ablations had to be performed for completion of the left atrial roof ablation Multiple attempts needed for successful cryoablation isolation of the right sided pulmonary vein PROCEDURES PERFORMED Diagnostic EP study CS pacing and recording Left and right transseptal catheterization Catheter the mapping of the tachycardia Intracardiac echocardiography Pulmonary vein isolation with transseptal and comprehensive EPS, 61717 Extended procedure duration Drug infusion, +[id number] Left atrial roof line, +[id number] Linear ablation, left atrium, +[id number] Ablation of focal atrial tachycardia in the left atrial ridge area, unsuccessful Electrical cardioversion with a synchronized shock across the chest [id number]
[2024-08-19] MEDS: ACETAMINOPHEN IV (For NPO) 1,000 MG in EMPTY BAG 1 BAG IVPB ONE (18:33)
[2024-08-19] MEDS: SACUBITRIL/VALSARTAN 24 MG-26 MG TABLET PO SCH (20:59)
[2024-08-19] MEDS: SODIUM CHLORIDE 0.9% 1,000 ML IV SCH (21:08)
[2024-08-19 21:49] VITALS: RESP 18
[2024-08-20] MEDS: LEVOTHYROXINE 75 MCG TAB PO SCH (05:11)
[2024-08-20] MEDS ORDERED: LEVOTHYROXINE 50 MCG TAB PO SCH (06:30)
[2024-08-20 07:52] VITALS: BP 121/70; PULSE 68; TEMP 98.5
--- NOTE | 2024-08-20 08:16 | P.DS ---
Providers Attending physician: Orlando Silva Consults: 08/19/24 12:48 Consult Physician Routine Consulting Provider: Loi Banks Consult Reason/Comments: INFECTION LEFT GROIN Do you want consulting provider notified?: Yes 08/19/24 16:38 Consult Physician Routine Consulting Provider: Loi Banks Consult Reason/Comments: Cellulitis abdominal wall Do you want consulting provider notified?: Yes Primary care physician: Linus Bishop Hospital Course: Patient is resting comfortably in bed No chest discomfort dizziness lightheadedness Afebrile 98.5 F blood pressure 124/79 mmHg pulse rate in the 60s Groins of healed well no hematoma Impression Persistent atrial fibrillation despite oral amiodarone Cellulitis abdominal wall, treated with IV antibiotics overnight, ID consulted Hypothyroidism TSH 37 on 50 mcg of levothyroxine Cardiomyopathy Patient underwent pulmonary vein isolation, left atrial roof ablation, left atrial septal ablation, and ablation of a focal source of atrial fibrillation in the left atrial ridge For the atrial tachycardia ablation was not successful endocardially and 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 daily ID consult for abdominal wall cellulitis, continue IV antibiotics today discharg e later today hopefully on oral antibiotics Reduce amiodarone to 200 mg p.o. daily and perhaps stop completely in 2 months Follow TSH every 6 months for the next 1 year Follow-up with Dr. Sykes Plan - Discharge Summary Discharge Rx Participant: No New Discharge Prescriptions: New Rivaroxaban [Xarelto] 20 mg PO DAILY #90 tab Amiodarone [Cordarone] 100 mg PO DAILY #90 tab Levothyroxine Sodium [Euthyrox] 75 mcg PO DAILY #90 tablet Discontinued Amiodarone [Cordarone] 200 mg PO DAILY 30 Days #120 tab Rivaroxaban [Xarelto] 10 mg PO DAILY Levothyroxine Sodium [Synthroid] 50 mcg PO DAILY No Action Aspirin EC [Ecotrin Low Dose] 81 mg PO DAILY 90 Days #90 tab Sacubitril/Valsartan [Entresto 24 mg-26 mg Tablet] 1 each PO BID 30 Days #60 tablet Atorvastatin Calcium [Lipitor] 40 mg PO DAILY 30 Days #30 tab Dapagliflozin Propanediol [Farxiga] 10 mg PO DAILY #30 tablet Metoprolol Succinate (ER) [Toprol Xl] 25 mg PO DAILY Losartan [Cozaar] 25 mg PO DAILY Eplerenone 25 mg PO DAILY Discharge Medication List Aspirin EC [Ecotrin Low Dose] 81 mg PO DAILY 90 Days #90 tab 10/22/23 [Rx] Dapagliflozin Propanediol [Farxiga] 10 mg PO DAILY #30 tablet 11/15/23 [Rx] Atorvastatin Calcium [Lipitor] 40 mg PO DAILY 30 Days #30 tab 11/30/23 [Rx] Sacubitril/Valsartan [Entresto 24 mg-26 mg Tablet] 1 each PO BID 30 Days #60 tablet 11/30/23 [Rx] Eplerenone 25 mg PO DAILY 08/18/24 [History] Losartan [Cozaar] 25 mg PO DAILY 08/18/24 [History] Metoprolol Succinate (ER) [Toprol Xl] 25 mg PO DAILY 08/18/24 [History] Amiodarone [Cordarone] 100 mg PO DAILY #90 tab 08/19/24 [Rx] Levothyroxine Sodium [Euthyrox] 75 mcg PO DAILY #90 tablet 08/19/24 [Rx] Rivaroxaban [Xarelto] 20 mg PO DAILY #90 tab 08/19/24 [Rx] Follow up Appointment(s)/Referral(s): Wei Sykes MD [Medical Doctor] - 1 Week Activity/Diet/Wound Care/Special Instructions: Post EP study - Ablation instructions1. Keep access sites dry for 2 days.2. No heavy lifting or straining for 2 days.3. Avoid bending the hips repeatedly for 2 days.4. You may go up and down stairs slowly 5. If you have had an ablation for atrial fibrillation or atrial flutter and are on a blood thinner, do not stop the blood thinner even temporarily for 3 months post ablationCall if the following is noted1. Bleeding, increasing swelling or pain at the access sites.2. Increasing chest discomfort, especially upon taking a deep breath.3. Increasing shortness of breath, at rest or with exertion.4. Undue cough / phlegm5. Difficulty or pain while swallowing.6. Pain or change in color in the extremities.7. Fever, chills, rigors.8. Increasing headache or neurologic symptoms.9. Dizziness, fainting, palpitations For patients who have undergone an A-fib ablation /atrial flutter ablationStrict instruction; do NOT stop anticoagulation (Eliquis/Xarelto/Pradaxa) for the next 2 months temporarily, for any elective, nonurgent surgery. This increases the risk of stroke, post A-fib ablation Discharge Disposition: HOME SELF-CARE
[2024-08-20] MEDS: ASPIRIN 81 MG PO SCH (09:30)
[2024-08-20] MEDS: ATORVASTATIN 40 MG TAB PO SCH (09:30)
[2024-08-20] MEDS: DAPAGLIFLOZIN PROPANEDIOL 10 MG TABLET PO SCH (09:30)
[2024-08-20] MEDS: RIVAROXABAN 20 MG TAB PO SCH (09:30)
[2024-08-20] MEDS: LOSARTAN 25 MG TAB PO SCH (09:30)
[2024-08-20] MEDS: SPIRONOLACTONE 25 MG TAB PO SCH (09:30)
[2024-08-20] MEDS: METOPROLOL SUCCINATE (ER) 25 MG TAB.ER.24H PO SCH (09:30)
[2024-08-20] MEDS: AMIODARONE 200 MG TAB PO SCH (09:30)
== END 2024-08-20 14:12 | disposition home or self-care (01) ==
LOC: CATHEP 08:13 → 6NMEDSUR 16:21 → CATHEP 08-20 14:12
PROVIDERS: ATTEND Internal Medicine Clinical Cardiac Electrophysiology
DX: I48.19 Other persistent atrial fibrillation (principal); I42.9 Cardiomyopathy, unspecified; I47.19 Other supraventricular tachycardia; I25.10 Atherosclerotic heart disease of native coronary artery without angina pectoris; I11.9 Hypertensive heart disease without heart failure; E78.5 Hyperlipidemia, unspecified; E03.9 Hypothyroidism, unspecified; Z79.01 Long term (current) use of anticoagulants; Z79.82 Long term (current) use of aspirin; Z79.84 Long term (current) use of oral hypoglycemic drugs; Z79.899 Other long term (current) drug therapy
CPT/HCPCS: 92960; 93623; 93656; 93657; 86900; 86901; 84439; 80053; 84443; 85025; 86850; J2250; J0330; J1644 ×4; J0690 ×2; J2003; J3010; J0131; J2704; Q9967; J2371

== ENCOUNTER → 2024-12-12 | Outpatient (CLI) | payer MEDICARE, OTHER ==
[2024-12-12 15:23] LABS: BUN/Creat Ratio 27.08 Ratio (12.00-20.00); Blood Urea Nitrogen 32.5 mg/dL (9.0-27.0); Carbon Dioxide 28.4 mmol/L (21.6-31.8); Chloride 108 mmol/L (96-109); Chol/HDL Ratio 3.57 Ratio; Glucose 91 mg/dL (70-110); LDL Cholesterol,Calculated 109.2 mg/dL (0.0-131.0); Potassium 5.3 mmol/L (3.5-5.5); Sodium 145 mmol/L (135-145); VLDL Calculation 13.22 mg/dL (5.00-40.00)
[2024-12-12 15:24] LABS: ALT 19 U/L (10-49); AST 22 U/L (14-35); Albumin/Globulin Ratio 1.29 Ratio (1.60-3.17); Alkaline Phosphatase 71 U/L (41-126); Calcium 8.9 mg/dL (8.7-10.3); Globulin 3.1 g/dL (1.6-3.3); Total Bilirubin 0.5 mg/dL (0.3-1.2); Total Protein 7.1 g/dL (6.2-8.2)
== END | disposition home or self-care (01) ==
LOC: LABWHC1 10:16
PROVIDERS: ATTEND Internal Medicine Clinical Cardiac Electrophysiology
DX: I48.91 Unspecified atrial fibrillation (principal)
CPT/HCPCS: 36415; 80053; 80061; 84443